=== PATIENT | male | born 1990 ===

== ENCOUNTER 2021-09-30 16:53 | Emergency (ER) | payer MEDICARE ==
[2021-09-30] MEDS ORDERED: LORazepam 2 MG/ML VIAL IM PRN (17:16)
[2021-09-30] MEDS ORDERED: HALOPERIDOL LACTATE 5 MG/1 ML INJ IM PRN (17:16)
--- NOTE | 2021-09-30 17:17 | Emergency Department Report ---
ED General Adult HPI - General Chief complaint: Psych Stated complaint: PYSCH EVAL Time Seen by Provider: 09/30/21 17:15 Source: patient, RN notes reviewed Mode of arrival: Ambulatory Limitations: Other (Acute psychosis) - History of Present Illness Initial comments: The patient was evaluated in the emergency department for symptoms described in the history of present illness. He/she was evaluated in the context of the global COVID-19 pandemic, which necessitated consideration that the patient might be at risk for infection with the virus that causes COVID-19. Institutional protocols and algorithms that pertain to the evaluation of patients at risk for COVID-19 are in a state of rapid change based on information released by regulatory bodies including the CDC and federal and state organizations. These policies and algorithms were followed during the patient's care in the emergency department. Please note that these policies, procedures and recommendations changed on a rapid basis. This is an -[place]ian male, who appears to be in his mid to late 20s, perhaps early 30s, who presented to the department nonverbal. The patient is not accompanied by friends or family for collateral information or additional information. The patient will not speak to me. The patient moves 4 extremities, and he covers his face with his hands. The patient does not carry any identifying information on him at this time. The patient is not accompanied by friends or family at this time for collateral information or additional information. The patient will not answer open-ended questions or close ended questions. -: unknown - Related Data Allergies Allergy/AdvReac Type Severity Reaction Status Date / Time No Known Allergies Allergy Verified 09/30/21 16:59 ED Review of Systems ROS: Stated complaint: PYSCH EVAL Other details as noted in HPI Comment: Unobtainable due to pts medical conditions ED Physical Exam - General Limitations: Other (Acute psychosis, patient is not verbal) General appearance: anxious - Head Head exam: Present: atraumatic, normocephalic - Eye Eye exam: Present: normal appearance, EOMI. Absent: nystagmus - ENT ENT exam: Present: normal exam, normal orophraynx, mucous membranes moist, normal external ear exam - Neck Neck exam: Present: normal inspection, full ROM. Absent: tenderness, meningismus - Respiratory Respiratory exam: Present: normal lung sounds bilaterally. Absent: respiratory distress, wheezes, rales, rhonchi, stridor, decreased breath sounds - Cardiovascular Cardiovascular Exam: Present: regular rate, normal rhythm, normal heart sounds. Absent: bradycardia, tachycardia, irregular rhythm, systolic murmur, diastolic murmur, rubs, gallop - GI/Abdominal GI/Abdominal exam: Present: soft. Absent: distended, tenderness, guarding, rebound, rigid, pulsatile mass - Rectal Rectal exam: Present: deferred - Extremities Exam Extremities exam: Present: normal inspection, full ROM, other (2+ pulses noted in the bilateral upper and lower extremities. There is no palpable cord. negative Homans sign. Muscular compartments are soft. The pelvis is stable.). Absent: pedal edema, calf tenderness - Back Exam Back exam: Present: normal inspection. Absent: tenderness, CVA tenderness (R), CVA tenderness (L), paraspinal tenderness, vertebral tenderness - Neurological Exam Neurological exam: Present: alert, normal gait, other (The patient is awake. The patient is moving 4 extremities. There is no facial droop. The patient will not speak to me. He has 5 out of 5 strength in 4 extremities.) - Psychiatric Psychiatric exam: Present: other (Patient is nonverbal) - Skin Skin exam: Present: warm, dry, intact, normal color. Absent: rash ED Course Vital Signs 09/30/21 16:56 Temperature 98 F Pulse Rate 91 H Respiratory 18 Rate Blood Pressure 122/81 [Left] O2 Sat by Pulse 99 Oximetry - Reevaluation(s) Reevaluation #1: 09/30/21 17:38 Differential diagnosis, include but not limited to: Psychosis, medical clearance for psychiatric placement, electrolyte derangement, thyroid derangement, intracranial structural abnormality Assessment and plan: Young appearing -Jordanian gentleman, who is awake, moving 4 extremities, protecting airway, appears to be anxious, and not speaking. This patient is not accompanied by friends or family at this time for collateral information or additional information. The patient is placed on a 1013. As needed medications ordered. Psychiatric consultation is requested. Appropriate laboratory studies, EKG, noncontrast CT scan of the brain ordered. I have personally filled out a 1013 on this patient. Reassess after diagnostic studies have resulted 09/30/21 19:43 Laboratory studies unremarkable. EKG unremarkable. CT scan of the brain unremarkable. UA, drug screen, and COVID swab pending. The emergency room will follow along as the patient provides these. At this point in time, this patient does not appear to have an immediate medical contraindication to psychiatric admission, evaluation, consultation and placement. Of note, multiple staff members recognizes patient, he likely has b een here before, but secondary to his lack of having in person identifying information on him, we are not able to access his old medical records at this time. ED Medical Decision Making - Lab Data Result diagrams: 09/30/21 17:32 09/30/21 17:32 Vital Signs 09/30/21 16:56 Temperature 98 F Pulse Rate 91 H Respiratory 18 Rate Blood Pressure 122/81 [Left] O2 Sat by Pulse 99 Oximetry Lab Results 09/30/21 09/30/21 09/30/21 Range/Units 17:32 17:32 17:32 WBC 4.9 (4.5-11.0) K/mm3 RBC 5.16 H (3.65-5.03) M/mm3 Hgb 14.7 (11.8-15.2) gm/dl Hct 43.1 (35.5-45.6) % MCV 84 (84-94) fl MCH 28 (28-32) pg MCHC 34 (32-34) % RDW 15.2 (13.2-15.2) % Plt Count 153 (140-440) K/mm3 Sodium 143 (137-145) mmol/L Potassium 3.6 (3.6-5.0) mmol/L Chloride 104.4 (98-107) mmol/L Carbon Dioxide 25 (22-30) mmol/L Anion Gap 17 mmol/L BUN 9 (9-20) mg/dL Creatinine 0.8 (0.8-1.3) mg/dL Estimated GFR > 60 ml/min BUN/Creatinine Ratio 11 % Glucose 90 (75-100) mg/dL Calcium 10.0 (8.4-10.2) mg/dL Magnesium 2.10 (1.7-2.3) mg/dL Total Bilirubin 0.30 (0.1-1.2) mg/dL AST 16 (5-40) units/L ALT 11 (7-56) units/L Alkaline Phosphatase 52 (35-129) units/L Total Creatine Kinase 129 (55-170) units/L Total Protein 7.9 (6.3-8.2) g/dL Albumin 4.9 (3.9-5) g/dL Albumin/Globulin Ratio 1.6 % TSH 1.200 (0.270-4.200) mlU/mL Salicylates (2.8-20.0) mg/dL Acetaminophen (10.0-30.0) ug/mL 09/30/21 09/30/21 Range/Units 17:32 17:32 WBC (4.5-11.0) K/mm3 RBC (3.65-5.03) M/mm3 Hgb (11.8-15.2) gm/dl Hct (35.5-45.6) % MCV (84-94) fl MCH (28-32) pg MCHC (32-34) % RDW (13.2-15.2) % Plt Count (140-440) K/mm3 Sodium (137-145) mmol/L Potassium (3.6-5.0) mmol/L Chloride (98-107) mmol/L Carbon Dioxide (22-30) mmol/L Anion Gap mmol/L BUN (9-20) mg/dL Creatinine (0.8-1.3) mg/dL Estimated GFR ml/min BUN/Creatinine Ratio % Glucose (75-100) mg/dL Calcium (8.4-10.2) mg/dL Magnesium (1.7-2.3) mg/dL Total Bilirubin (0.1-1.2) mg/dL AST (5-40) units/L ALT (7-56) units/L Alkaline Phosphatase (35-129) units/L Total Creatine Kinase (55-170) units/L Total Protein (6.3-8.2) g/dL Albumin (3.9-5) g/dL Albumin/Globulin Ratio % TSH (0.270-4.200) mlU/mL Salicylates < 0.3 L (2.8-20.0) mg/dL Acetaminophen 5.0 L (10.0-30.0) ug/mL - EKG Data -: EKG Interpreted by Ne EKG shows normal: sinus rhythm Rate: normal - EKG Data When compared to previous EKG there are: previous EKG unavailable 09/30/21 19:42 The EKG is interpreted at 19: 23 Sinus rhythm, 60 bpm. Normal axis, normal P wave axis, high left ventricular voltage, early repolarization. Abnormal EKG. Not a STEMI. No prior for comparison. - Radiology Data Radiology results: pending, report reviewed, image reviewed Noncontrast CT scan of the brain is negative for acute findings [facility] [address] [place] [address] Cat Scan Report Signed Patient: EMERGENCY,MEDICAL MR#: [id number] : 04/08/1899 Acct:[id number] Age/Sex: 89 / M ADM Date: 09/30/21 Loc: ED Attending Dr: Ordering Physician: JIMMIE DINH MD Date of Service: 09/30/21 Procedure(s): CT head/brain wo con Accession Number(s): [id number] cc: JIMMIE DINH MD CT head/brain wo con INDICATION / CLINICAL INFORMATION: 89 years Male; Medical Clearance Psych. TECHNIQUE: Routine CT head without contrast. All CT scans at this location are performed using CT dose reduction for ALARA by means of automated exposure control. COMPARISON: None available FINDINGS: BRAIN / INTRACRANIAL CONTENTS: The motion degrades image quality despite repeat imaging. However, the brain parenchyma appears to demonstrate appropriate attenuation. The ventricular system is within normal limits in size and configuration. There is no clear CT evidence of acute intracranial hemorrhage or significant mass effect. ORBITS: No significant abnormality of visualized orbits. SINUSES / MASTOIDS: No significant abnormality in the visualized paranasal sinuses or mastoid air cells. CRANIOCERVICAL JUNCTION: No significant abnormality. ADDITIONAL FINDINGS: None. IMPRESSION: 1. There is no clear CT ends of acute intracranial process. Signer Name: Jimmie Ellis MD Signed: 09/30/2021 6:30 PM Workstation Name: [id number] Transcribed By: MR Dictated By: Jimmie Ellis MD Electronically Authenticated By: Jimmie Ellis MD Signed Date/Time: 09/30/21 1830 DD/ 1827 Critical care attestation.: If time is entered above; I have spent that time in minutes in the direct care of this critically ill patient, excluding procedure time. ED Disposition Clinical Impression: Medical clearance for psychiatric admission, Disorganized behavior Disposition: [address] [place] [address] Is pt being admited?: No Does the pt Need Aspirin: No Condition: Good
[2021-09-30 18:10] LABS: Hematocrit 43.1 % (35.5-45.6); Hemoglobin 14.7 gm/dl (11.8-15.2); Mean Corpuscular HGB Conc 34 % (32-34); Mean Corpuscular Volume 84 fl (84-94); Platelet Count 153 K/mm3 (140-440); Red Blood Count 5.16 M/mm3 (3.65-5.03); Red Cell Distribution Width 15.2 % (13.2-15.2)
--- NOTE | 2021-09-30 18:35 | Cat Scan Report ---
CT head/brain wo con INDICATION / CLINICAL INFORMATION: 89 years Male; Medical Clearance Psych. TECHNIQUE: Routine CT head without contrast. All CT scans at this location are performed using CT dos e reduction for ALARA by means of automated exposure control. COMPARISON: None available FINDINGS: BRAIN / INTRACRANIAL CONTENTS: The motion degrades image quality despite repeat imaging. However, the brain parenchyma appears to demonstrate appropriate attenuation. The ventricular system is within no rmal limits in size and configuration. There is no clear CT evidence of acute intracranial hemorrhage or significant mass effect. ORBITS: No significant abnormality of visualized orbits. SINUSES / MASTOIDS: No significant abnormality in the visualized paranasal sinuses or mastoid air theodore ls. CRANIOCERVICAL JUNCTION: No significant abnormality. ADDITIONAL FINDINGS: None. IMPRESSION: 1. There is no clear CT ends of acute intracranial process. Signer Name: Jimbo Ellis MD Signed: 09/30/2021 6:30 PM Workstation Name: [id number]
[2021-09-30 18:38] LABS: Alanine Aminotransferase 11 units/L (7-56); Albumin 4.9 g/dL (3.9-5); BUN/Creatinine Ratio 11; Blood Urea Nitrogen 9 mg/dL (9-20); Hemolysis Index 6
--- NOTE | 2021-10-01 09:55 | Consultation ---
History of Present Illness - Reason for Consult Consult date: 10/01/21 Reason for consult: mental health evaluation - History of Present Psychiatric Illness HPI: This is an -[place] male, who appears to be in his mid to late 20s, perhaps early 30s, who presented to the department nonverbal. The patient is not accompanied by friends or family for collateral information or additional information. The patient will not speak to me. The patient moves 4 extremities, and he covers his face with his hands. The patient does not carry any identifying information on him at this time. The patient is not accompanied by friends or family at this time for collateral information or additional information. The patient will not answer open-ended questions or close ended questions. The patient was seen this morning. He presents with flat affect and nonverbal. The patient is not engaging at this time. PAST PSYCHIATRIC HISTORY PAST MEDICAL HISTORY: none reported Family Psychiatric History: None reported or documented SOCIAL HISTORY REVIEW OF SYSTEMS MENTAL STATUS EXAMINATION Assessment and Plan (1) Unspecified mood disorder Treatment 1013 Haldol 5mg po BID, give IM if patient refuse Sitter: Per primary Medical: Per primary Disposition: recommend acute inpatient psychiatric treatment. Will follow. Thanks Case staffed with Dr. Allen Medications and Allergies Medications and Allergies Allergies Allergy/AdvReac Type Severity Reaction Status Date / Time No Known Allergies Allergy Verified 09/30/21 16:59 Active Meds: Active Medications Haloperidol Lactate (Haloperidol Lactate 5 Mg/1 Ml Inj) 5 mg IM Q6HR PRN PRN Reason: Agitation Lorazepam (Lorazepam 2 Mg/Ml Vial) 2 mg IM Q4HR PRN PRN Reason: Agitation Mental Status Exam - Vital signs Last Vital Signs Temp 98.4 F 09/30/21 22:59 Pulse 82 09/30/21 22:59 Resp 16 09/30/21 22:59 BP 120/78 09/30/21 22:59 Pulse Ox 99 10/01/21 08:48 Results Result Diagrams: 09/30/21 17:32 09/30/21 17:32 Abnormal lab results 09/30/21 09/30/21 09/30/21 Range/Units 17:32 17:32 17:32 RBC 5.16 H (3.65-5.03) M/mm3 Salicylates < 0.3 L (2.8-20.0) mg/dL Acetaminophen 5.0 L (10.0-30.0) ug/mL All other labs normal.
--- NOTE | 2021-10-01 12:26 | Event Note ---
Date: 10/01/21 The patient was evaluated in the emergency department for symptoms described in the history of present illness. He/she was evaluated in the context of the global COVID-19 pandemic, which necessitated consideration that the patient might be at risk for infection with the virus that causes COVID-19. Institutional protocols and algorithms that pertain to the evaluation of patients at risk for COVID-19 are in a state of rapid change based on information released by regulatory bodies including the CDC and federal and state organizations. These policies and algorithms were followed during the patient's care in the emergency department. Please note that these policies, procedures and recommendations changed on a rapid basis. Laboratory studies, vital signs, nursing documentation, ER documentation, and psychiatric documentation are reviewed and appreciated. Nursing team reports no acute events this morning or concerns. The patient is awake and ambulating and does not appear to be in any acute distress. The patient was deemed medically suitable for psychiatric disposition and placement during his initial ER evaluation. The patient continues to remain medically suitable for psychiatric placement and disposition. He is currently pending psychiatric placement. Vital Signs 09/30/21 09/30/21 09/30/21 16:56 20:59 22:59 Temperature 98 F 98.4 F Pulse Rate 91 H 82 Respiratory 18 16 Rate Blood Pressure 122/81 120/78 [Left] O2 Sat by Pulse 99 100 99 Oximetry 10/01/21 10/01/21 08:48 10:00 Temperature 98.6 F Pulse Rate 82 Respiratory 18 Rate Blood Pressure 117/74 [Left] O2 Sat by Pulse 99 100 Oximetry Lab Results 09/30/21 09/30/21 09/30/21 Range/Units 17:32 17:32 17:32 WBC 4.9 (4.5-11.0) K/mm3 RBC 5.16 H (3.65-5.03) M/mm3 Hgb 14.7 (11.8-15.2) gm/dl Hct 43.1 (35.5-45.6) % MCV 84 (84-94) fl MCH 28 (28-32) pg MCHC 34 (32-34) % RDW 15.2 (13.2-15.2) % Plt Count 153 (140-440) K/mm3 Sodium 143 (137-145) mmol/L Potassium 3.6 (3.6-5.0) mmol/L Chloride 104.4 (98-107) mmol/L Carbon Dioxide 25 (22-30) mmol/L Anion Gap 17 mmol/L BUN 9 (9-20) mg/dL Creatinine 0.8 (0.8-1.3) mg/dL Estimated GFR > 60 ml/min BUN/Creatinine Ratio 11 % Glucose 90 (75-100) mg/dL Calcium 10.0 (8.4-10.2) mg/dL Magnesium 2.10 (1.7-2.3) mg/dL Total Bilirubin 0.30 (0.1-1.2) mg/dL AST 16 (5-40) units/L ALT 11 (7-56) units/L Alkaline Phosphatase 52 (35-129) units/L Total Creatine Kinase 129 (55-170) units/L Total Protein 7.9 (6.3-8.2) g/dL Albumin 4.9 (3.9-5) g/dL Albumin/Globulin Ratio 1.6 % TSH 1.200 (0.270-4.200) mlU/mL Salicylates (2.8-20.0) mg/dL Acetaminophen (10.0-30.0) ug/mL SARS-CoV-2 (PCR) (Negative) 09/30/21 09/30/21 10/01/21 Range/Units 17:32 17:32 10:00 WBC (4.5-11.0) K/mm3 RBC (3.65-5.03) M/mm3 Hgb (11.8-15.2) gm/dl Hct (35.5-45.6) % MCV (84-94) fl MCH (28-32) pg MCHC (32-34) % RDW (13.2-15.2) % Plt Count (140-440) K/mm3 Sodium (137-145) mmol/L Potassium (3.6-5.0) mmol/L Chloride (98-107) mmol/L Carbon Dioxide (22-30) mmol/L Anion Gap mmol/L BUN (9-20) mg/dL Creatinine (0.8-1.3) mg/dL Estimated GFR ml/min BUN/Creatinine Ratio % Glucose (75-100) mg/dL Calcium (8.4-10.2) mg/dL Magnesium (1.7-2.3) mg/dL Total Bilirubin (0.1-1.2) mg/dL AST (5-40) units/L ALT (7-56) units/L Alkaline Phosphatase (35-129) units/L Total Creatine Kinase (55-170) units/L Total Protein (6.3-8.2) g/dL Albumin (3.9-5) g/dL Albumin/Globulin Ratio % TSH (0.270-4.200) mlU/mL Salicylates < 0.3 L (2.8-20.0) mg/dL Acetaminophen 5.0 L (10.0-30.0) ug/mL SARS-CoV-2 (PCR) Negative (Negative) currently awaiting ua, but this does not preclude psychiatric disposition at this time
[2021-10-01 15:12] LABS: Bilirubin,Urine NEG (Negative); Blood,Urine NEG (Negative); Color,Urine Yellow (Yellow); Protein,Urine <15 mg/dL mg/dL (Negative)
[2021-10-01 15:19] LABS: Mucus,Urine 3+ /HPF
[2021-10-01 15:20] LABS: Amphetamine Screen,Urine Negative; Benzodiazepines Screen,Urine Negative; Cocaine Screen,Urine Negative; Methadone Screen,Urine Negative; Opiate Screen,Urine Negative
[2021-10-01 15:40] LABS: Cannabinoid Screen,Urine Positive
--- NOTE | 2021-10-02 09:42 | Progress Note ---
Subjective - Reason for Consult Consult date: 10/02/21 Reason for consult: mental health evaluation - Chief Complaint Chief complaint: The patient was seen this morning. He continues to be nonverbal but gestures. The patient is still not engaging. REVIEW OF SYSTEMS MENTAL STATUS EXAMINATION Assessment and Plan (1) Unspecified mood disorder Treatment 1013 Haldol 5mg po BID, give IM if patient refuse Sitter: Per primary Medical: Per primary Disposition: recommend acute inpatient psychiatric treatment. Will follow. Thanks Case staffed with Dr. Allen Medications and Allergies Mental Status Exam - Vital signs Last Vital Signs Temp 98.8 F 10/02/21 09:07 Pulse 89 10/02/21 09:07 Resp 20 10/02/21 09:07 BP 110/74 10/02/21 09:07 Pulse Ox 98 10/02/21 09:07
--- NOTE | 2021-10-02 11:20 | Event Note ---
Date: 10/02/21 vss , no events overnight ,medically cleared , no problems overnight , awiting placement by psych
--- NOTE | 2021-10-03 13:49 | Progress Note ---
Subjective - Reason for Consult Consult date: 10/03/21 Reason for consult: psychosis - Chief Complaint Chief complaint: The patient was seen this morning. He continues to be nonverbal and not engaging. REVIEW OF SYSTEMS MENTAL STATUS EXAMINATION Assessment and Plan (1) Unspecified mood disorder Treatment 1013 Haldol 5mg po BID Sitter: Per primary Medical: Per primary Disposition: recommend acute inpatient psychiatric treatment. Will follow. Thanks Case staffed with Dr. Allen Medications and Allergies Mental Status Exam - Vital signs Last Vital Signs Temp 98.8 F 10/02/21 09:07 Pulse 89 10/02/21 09:07 Resp 20 10/02/21 09:07 BP 110/74 10/02/21 09:07 Pulse Ox 98 10/02/21 09:36
[2021-10-03] MEDS ORDERED: HALOPERIDOL 5 MG TAB PO SCH (14:00)
[2021-10-04 08:35] VITALS: BP 116/75
--- NOTE | 2021-10-04 10:25 | Progress Note ---
Subjective - Reason for Consult Consult date: 10/04/21 Reason for consult: mental health evaluation - Chief Complaint Chief complaint: The patient was seen this morning. He continues to be nonverbal but gestures that he is ok. He denies suicidal/homicidal ideation and denies hallucinations. Patient will be discharged to his mother. Attempted to contact patient's mother, Radha @ [phone] with no response; left a message on the answering service. REVIEW OF SYSTEMS MENTAL STATUS EXAMINATION Assessment and Plan (1) Unspecified mood disorder Treatment Case management DC 1013 Haldol 5mg po BID Sitter: Per primary Medical: Per primary Disposition: Do not recommend acute inpatient psychiatric treatment. [facility] will provide patient with psychiatric outpatient resources. Will sign off. Thanks Case staffed with Dr. Allen Medications and Allergies Mental Status Exam - Vital signs Last Vital Signs Temp 97.9 F 10/04/21 08:34 Pulse 61 10/04/21 08:34 Resp 20 10/04/21 08:34 BP 116/75 10/04/21 08:34 Pulse Ox 96 10/04/21 08:41
--- NOTE | 2021-10-04 12:38 | Event Note ---
Date: 10/04/21 The patient was evaluated in the emergency department for symptoms described in the history of present illness. He/she was evaluated in the context of the global COVID-19 pandemic, which necessitated consideration that the patient might be at risk for infection with the virus that causes COVID-19. Institutional protocols and algorithms that pertain to the evaluation of patients at risk for COVID-19 are in a state of rapid change based on information released by regulatory bodies including the CDC and federal and state organizations. These policies and algorithms were followed during the patient's care in the emergency department. Please note that these policies, procedures and recommendations changed on a rapid basis. Laboratory studies, vital signs, nursing documentation, ER documentation, and psychiatric documentation are reviewed and appreciated. Nursing team reports no acute events this morning or concerns. The patient is awake and ambulating and does not appear to be in any acute distress. The patient was deemed medically suitable for psychiatric disposition and placement during his initial ER evaluation. The patient continues to remain medically suitable for psychiatric placement and disposition. He is currently pending psychiatric placement. The psychiatric team have recommended discontinuation of 1013. The patient will be discharged with outpatient follow-up Vital Signs 09/30/21 09/30/21 09/30/21 16:56 20:59 22:59 Temperature 98 F 98.4 F Pulse Rate 91 H 82 Respiratory 18 16 Rate Blood Pressure 122/81 120/78 [Left] O2 Sat by Pulse 99 100 99 Oximetry 10/01/21 10/01/21 10/01/21 08:48 10:00 17:16 Temperature 98.6 F Pulse Rate 82 Respiratory 18 Rate Blood Pressure 117/74 [Left] O2 Sat by Pulse 99 100 100 Oximetry 10/01/21 10/02/21 10/02/21 20:37 09:07 09:36 Temperature 98.7 F 98.8 F Pulse Rate 64 89 Respiratory 18 20 Rate Blood Pressure 109/68 110/74 [Left] O2 Sat by Pulse 95 98 98 Oximetry 10/03/21 10/04/21 10/04/21 19:36 08:34 08:41 Temperature 99.0 F 97.9 F Pulse Rate 83 61 Respiratory 18 20 Rate Blood Pressure 142/85 116/75 [Left] O2 Sat by Pulse 96 96 96 Oximetry Lab Results 09/30/21 09/30/21 09/30/21 Range/Units 17:32 17:32 17:32 WBC 4.9 (4.5-11.0) K/mm3 RBC 5.16 H (3.65-5.03) M/mm3 Hgb 14.7 (11.8-15.2) gm/dl Hct 43.1 (35.5-45.6) % MCV 84 (84-94) fl MCH 28 (28-32) pg MCHC 34 (32-34) % RDW 15.2 (13.2-15.2) % Plt Count 153 (140-440) K/mm3 Sodium 143 (137-145) mmol/L Potassium 3.6 (3.6-5.0) mmol/L Chloride 104.4 (98-107) mmol/L Carbon Dioxide 25 (22-30) mmol/L Anion Gap 17 mmol/L BUN 9 (9-20) mg/dL Creatinine 0.8 (0.8-1.3) mg/dL Estimated GFR > 60 ml/min BUN/Creatinine Ratio 11 % Glucose 90 (75-100) mg/dL Calcium 10.0 (8.4-10.2) mg/dL Magnesium 2.10 (1.7-2.3) mg/dL Total Bilirubin 0.30 (0.1-1.2) mg/dL AST 16 (5-40) units/L ALT 11 (7-56) units/L Alkaline Phosphatase 52 (35-129) units/L Total Creatine Kinase 129 (55-170) units/L Total Protein 7.9 (6.3-8.2) g/dL Albumin 4.9 (3.9-5) g/dL Albumin/Globulin Ratio 1.6 % TSH 1.200 (0.270-4.200) mlU/mL Urine Color (Yellow) Urine Turbidity (Clear) Urine pH (5.0-7.0) Ur Specific Rice (1.003-1.030) Urine Protein (Negative) mg/dL Urine Glucose (UA) (Negative) mg/dL Urine Ketones (Negative) mg/dL Urine Blood (Negative) Urine Nitrite (Negative) Urine Bilirubin (Negative) Urine Urobilinogen (<2.0) mg/dL Ur Leukocyte Esterase (Negative) Urine WBC (Auto) (0.0-6.0) /HPF Urine RBC (Auto) (0.0-6.0) /HPF U Epithel Cells (Auto) (0-13.0) /HPF Urine Mucus /HPF Salicylates (2.8-20.0) mg/dL Urine Opiates Screen Urine Methadone Screen Acetaminophen (10.0-30.0) ug/mL Ur Barbiturates Screen Ur Phencyclidine Scrn Ur Amphetamines Screen U Benzodiazepines Scrn Urine Cocaine Screen U Marijuana (THC) Screen Drugs of Abuse Note SARS-CoV-2 (PCR) (Negative) 09/30/21 09/30/21 10/01/21 Range/Units 17:32 17:32 10:00 WBC (4.5-11.0) K/mm3 RBC (3.65-5.03) M/mm3 Hgb (11.8-15.2) gm/dl Hct (35.5-45.6) % MCV (84-94) fl MCH (28-32) pg MCHC (32-34) % RDW (13.2-15.2) % Plt Count (140-440) K/mm3 Sodium (137-145) mmol/L Potassium (3.6-5.0) mmol/L Chloride (98-107) mmol/L Carbon Dioxide (22-30) mmol/L Anion Gap mmol/L BUN (9-20) mg/dL Creatinine (0.8-1.3) mg/dL Estimated GFR ml/min BUN/Creatinine Ratio % Glucose (75-100) mg/dL Calcium (8.4-10.2) mg/dL Magnesium (1.7-2.3) mg/dL Total Bilirubin (0.1-1.2) mg/dL AST (5-40) units/L ALT (7-56) units/L Alkaline Phosphatase (35-129) units/L Total Creatine Kinase (55-170) units/L Total Protein (6.3-8.2) g/dL Albumin (3.9-5) g/dL Albumin/Globulin Ratio % TSH (0.270-4.200) mlU/mL Urine Color (Yellow) Urine Turbidity (Clear) Urine pH (5.0-7.0) Ur Specific Rice (1.003-1.030) Urine Protein (Negative) mg/dL Urine Glucose (UA) (Negative) mg/dL Urine Ketones (Negative) mg/dL Urine Blood (Negative) Urine Nitrite (Negative) Urine Bilirubin (Negative) Urine Urobilinogen (<2.0) mg/dL Ur Leukocyte Esterase (Negative) Urine WBC (Auto) (0.0-6.0) /HPF Urine RBC (Auto) (0.0-6.0) /HPF U Epithel Cells (Auto) (0-13.0) /HPF Urine Mucus /HPF Salicylates < 0.3 L (2.8-20.0) mg/dL Urine Opiates Screen Urine Methadone Screen Acetaminophen 5.0 L (10.0-30.0) ug/mL Ur Barbiturates Screen Ur Phencyclidine Scrn Ur Amphetamines Screen U Benzodiazepines Scrn Urine Cocaine Screen U Marijuana (THC) Screen Drugs of Abuse Note SARS-CoV-2 (PCR) Negative (Negative) 10/01/21 10/01/21 Range/Units 14:39 14:39 WBC (4.5-11.0) K/mm3 RBC (3.65-5.03) M/mm3 Hgb (11.8-15.2) gm/dl Hct (35.5-45.6) % MCV (84-94) fl MCH (28-32) pg MCHC (32-34) % RDW (13.2-15.2) % Plt Count (140-440) K/mm3 Sodium (137-145) mmol/L Potassium (3.6-5.0) mmol/L Chloride (98-107) mmol/L Carbon Dioxide (22-30) mmol/L Anion Gap mmol/L BUN (9-20) mg/dL Creatinine (0.8-1.3) mg/dL Estimated GFR ml/min BUN/Creatinine Ratio % Glucose (75-100) mg/dL Calcium (8.4-10.2) mg/dL Magnesium (1.7-2.3) mg/dL Total Bilirubin (0.1-1.2) mg/dL AST (5-40) units/L ALT (7-56) units/L Alkaline Phosphatase (35-129) units/L Total Creatine Kinase (55-170) units/L Total Protein (6.3-8.2) g/dL Albumin (3.9-5) g/dL Albumin/Globulin Ratio % TSH (0.270-4.200) mlU/mL Urine Color Yellow (Yellow) Urine Turbidity Clear (Clear) Urine pH 5.0 (5.0-7.0) Ur Specific Rice 1.027 (1.003-1.030) Urine Protein <15 mg/dl (Negative) mg/dL Urine Glucose (UA) Neg (Negative) mg/dL Urine Ketones 80 (Negative) mg/dL Urine Blood Neg (Negative) Urine Nitrite Neg (Negative) Urine Bilirubin Neg (Negative) Urine Urobilinogen 2.0 (<2.0) mg/dL Ur Leukocyte Esterase Neg (Negative) Urine WBC (Auto) 1.0 (0.0-6.0) /HPF Urine RBC (Auto) 1.0 (0.0-6.0) /HPF U Epithel Cells (Auto) < 1.0 (0-13.0) /HPF Urine Mucus 3+ /HPF Salicylates (2.8-20.0) mg/dL Urine Opiates Screen Negative Urine Methadone Screen Negative Acetaminophen (10.0-30.0) ug/mL Ur Barbiturates Screen Negative Ur Phencyclidine Scrn Negative Ur Amphetamines Screen Negative U Benzodiazepines Scrn Negative Urine Cocaine Screen Negative U Marijuana (THC) Screen Positive Drugs of Abuse Note Disclamer SARS-CoV-2 (PCR) (Negative)
== END 2021-10-04 13:50 | disposition home or self-care (01) ==
LOC: EEVIPCON 16:53 → ED 16:53 → EDBD 16:53 → ED 10-04 13:50
DX: F69 Unspecified disorder of adult personality and behavior (principal); Z20.822 Contact with and (suspected) exposure to COVID-19; R41.82 Altered mental status, unspecified
CPT/HCPCS: 36415; 70450; 80053; 80307; 81001; 82550; 83735; 84443; 85027; 99284; U0003; 80320; G0480